=== PATIENT | female | born 1990 | race Caucasian/White ===

== ENCOUNTER 2021-10-05 16:44 | Emergency (ER) | payer MEDICAID ==
[~2021-10-05] VITALS: Ht 170.2 cm; Wt 59.0 kg
--- NOTE | 2021-10-05 16:44 | NUR ---
BROUGHT IN BY [facility], PLACED IN BED #1, DR DA SILVA AND RESP CALLED IMMEDIATELY TO BEDSIDE.
[2021-10-05 16:45] VITALS: BP_SYST 133
--- NOTE | 2021-10-05 16:50 | NUR ---
PT BIBA C/O RESPIRATORY DISTRESS AND FEELING LIKE HER THROAT IS SWOLLEN AND CLOSING WITH HX OF SEVERE ALLERGIC REACTIONS PER PT. PT ARRIVES ON CPAP, EPI 0.5MG X 1 GIVEN EN ROUTE IM. PT ARRIVES WITH IMPROVEMENT, STATES CPAP IS MAKING HER THROAT DRY. PT IS AAOX4, V/S STABLE.
--- NOTE | 2021-10-05 16:55 | NUR ---
RT AT THE BEDSIDE- CPAP REMOVED- PT TOLERATING WELL, O2 SAT 98% ON RA
--- NOTE | 2021-10-05 17:00 | NUR ---
PT REQUESTING TO USE BATHROOM, ABLE TO AMBULATE WITH STEADY GAIT AND PROVIDED URINE SPECIMEN.
--- NOTE | 2021-10-05 17:50 | NUR ---
PT REQUESTING TO BE DC'D MADE AWARE. PT ON CELL PHONE IN BED, AAOX4, NO DISTRESS, RA 98%.
[2021-10-05 18:10] VITALS: BP_SYST 133
--- NOTE | 2021-10-05 18:10 | NUR ---
Patient given written and verbal discharge instructions and verbalizes understanding. ER MD discussed with patient the results and treatment provided. Patient in stable condition. ID arm band removed. NO Rx given. Patient educated on pain management and to follow up with PMD. Pain Scale 0/10. Opportunity for questions provided and answered. Medication side effect fact sheet provided.
== END 2021-10-05 18:10 | disposition home or self-care (01) ==
LOC: SED 16:44
DX: F41.0 Panic disorder [episodic paroxysmal anxiety] (principal); J45.909 Unspecified asthma, uncomplicated
CPT/HCPCS: 99281